=== PATIENT | female | born 1950 | race Caucasian/White ===

== ENCOUNTER 2022-04-12 07:39 | Inpatient (IN) | payer MEDICARE ==
[~2022-04-12] VITALS: Ht 172.7 cm; Wt 89.7 kg
[2022-04-12] MEDS ORDERED: normal saline 1000ML IV soln IVB ONE (09:25)
--- NOTE | 2022-04-12 09:30 | NUR ---
I have reviewed and agree with all interventions, assessments performed and documented by INGE Landa.
[2022-04-12 09:44] LABS: CLARITY,URINE CLOUDY (Clear); COLOR,URINE YELLOW (Yellow); GLUCOSE, URINE NEGATIVE (Neg); KETONES,URINE NEGATIVE (Neg); LEUKOCYTE ESTERASE ,URINE NEGATIVE (Neg); NITRITES, URINE NEGATIVE (Neg); OCCULT BLOOD,URINE NEGATIVE (Neg); PH,URINE 5.5 (4.8-8.0); PROTEIN,URINE NEGATIVE (Neg); UROBILINOGEN,URINE 0.2 E.U/dL (0.2-1.0)
[2022-04-12 09:44] LABS: BASOPHILS # (AUTO) 0.1 X10'3 (0-0.2); BASOPHILS % (AUTO) 1.3 % (0-1); EOSINOPHILS # (AUTO) 0.2 X10'3 (0-0.9); HEMATOCRIT 41.9 % (35.0-45.0); HEMOGLOBIN 13.6 g/dl (12.0-16.0); LYMPHOCYTES # (AUTO) 1.6 X10'3 (1.1-4.8); LYMPHOCYTES % (AUTO) 19.9 % (21-51); MEAN CORPUSCULAR HEMOGLOBIN 28.9 PG (27.0-31.0); MEAN CORPUSCULAR HGB CONC 32.4 g/dL (33.0-36.5); MEAN CORPUSCULAR VOLUME 89.3 FL (78-98); MEAN PLATELET VOLUME 7.6 FL (7.4-10.4); MONOCYTES # (AUTO) 0.6 X10'3 (0-0.9); MONOCYTES % (AUTO) 7.7 % (2-12); NEUTROPHILS # (AUTO) 5.5 X10'3 (1.8-7.7); NEUTROPHILS % (AUTO) 69.1 % (42-75); PLATELET COUNT 245 X10'3 (140-440); RED BLOOD COUNT 4.69 X10'6 (4.20-5.60); RED CELL DISTRIBUTION WIDTH 14.2 % (11.5-14.5)
[2022-04-12 09:49] LABS: UA COLLECTION TYPE VOIDED
[2022-04-12 09:50] LABS: MUCUS STRANDS MODERATE /LPF (Neg); SQUAMOUS EPITHELIAL CELL,UR MANY /LPF (FEW)
[2022-04-12 09:51] LABS: BACTERIA,URINE FEW /HPF (Neg); CAL OXALATE CRYSTALS 1+ /HPF (NEGATIVE); RBC,URINE 0-2 /HPF (0-2); WBC,URINE 0-4 /HPF (0-4)
[2022-04-12 10:07] LABS: ALANINE AMINOTRANSFERASE 30 U/L (12-78); ALBUMIN/GLOBULIN RATIO 1.1 (1.1-1.5); ALKALINE PHOSPHATASE 132 IU/L (46-116); ANION GAP 8 (8-16); ASPARTATE AMINO TRANSFERASE 25 U/L (10-37); BILIRUBIN,TOTAL 0.3 MG/DL (0.1-1.0); BLOOD UREA NITROGEN 21 MG/DL (7-18); BUN/CREATININE RATIO 20.2 (6.6-38.0); CALCIUM 8.8 MG/DL (8.5-10.1); CHLORIDE 102 MMOL/L (99-107); CREATININE 1.04 MG/DL (0.40-0.90); GLUCOSE 171 MG/DL (70-104); POTASSIUM 3.3 MMOL/L (3.5-5.1); SODIUM 139 MMOL/L (135-145); TOTAL CARBON DIOXIDE 28.8 MMOL/L (24-32); TOTAL PROTEIN 7.5 G/DL (6.4-8.2); eGFR 52 ML/MIN
[2022-04-12] MEDS ORDERED: aspirin 81mg tab.chew PO ONE (10:40)
[2022-04-12 14:41] LABS: D-DIMER 0.35 MG/L FEU (0-0.50)
--- NOTE | 2022-04-12 14:49 | NUR ---
JOSE Santana at the bedside. He is aware of pt's vital signs.
[2022-04-12] MEDS ORDERED: FLUT15.815 NS (15:05)
[2022-04-12] MEDS ORDERED: VITA400T10 PO (15:05)
[2022-04-12] MEDS ORDERED: MULT-1249 PO (15:05)
[2022-04-12] MEDS ORDERED: AMIT10TA6 PO (15:05)
[2022-04-12] MEDS ORDERED: CHOL10006 PO (15:05)
[2022-04-12] MEDS ORDERED: OMEP20CA16 PO (15:05)
[2022-04-12] MEDS ORDERED: morphine 2 MG/ML inj. syringe IV PRN ×2 (16:15)
[2022-04-12] MEDS ORDERED: HYDROcodone/acetaminophen 5mg/325mg tablet PO PRN (16:15)
[2022-04-12] MEDS ORDERED: mag hydrox/Alum hydrox/simeth 30ml oral suspension PO PRN (16:15)
[2022-04-12] MEDS ORDERED: acetaminophen 325mg tablet PO PRN (16:15)
[2022-04-12] MEDS ORDERED: magnesium hydroxide 30ml (MOM) UD suspension PO PRN (16:15)
[2022-04-12] MEDS ORDERED: ondansetron/PF 4mg/2ml inj IV PRN (16:15)
[2022-04-12] MEDS: metoprolol succinate 25mg (24-HOUR) SR. Tablet PO SCH (16:47)
[2022-04-12] MEDS: acetaminophen 325mg tablet PO PRN (17:42)
[2022-04-12] MEDS ORDERED: docusate sod 100mg capsule PO SCH (20:00)
[2022-04-12] MEDS ORDERED: amitriptyline 10mg tablet PO SCH (21:00)
[2022-04-12] MEDS ORDERED: pantoprazole 40mg Tablet.DR PO ONE (22:10)
--- NOTE | 2022-04-13 00:06 | NUR ---
REPORT CALLED TO FLOOR NURSE. PT TX TO [phone] [id number]
[2022-04-13 00:20] VITALS: BP 175/88
[2022-04-13] MEDS: acetaminophen 325mg tablet PO PRN (01:39)
[2022-04-13 02:30] VITALS: BP 162/91
--- NOTE | 2022-04-13 06:10 | NUR ---
Patient in room PCU 3023. I have received report from Oz ACOSTA and had the opportunity to ask questions and assume patient care.
--- NOTE | 2022-04-13 06:13 | NUR ---
Problems reprioritized. Patient report given, questions answered & plan of care reviewed with Katty ALCAZAR. Addendum: 04/13/22 at 0615 by Oz Landaverde RN Problems reprioritized. Patient report given, questions answered & plan of care reviewed with Mikki ACOSTA
[2022-04-13 07:24] LABS: BASOPHILS % (AUTO) 0.5 % (0-1); EOSINOPHILS # (AUTO) 0.2 X10'3 (0-0.9); EOSINOPHILS % (AUTO) 2.6 % (0-6); HEMATOCRIT 39.2 % (35.0-45.0); HEMOGLOBIN 13.1 g/dl (12.0-16.0); LYMPHOCYTES # (AUTO) 1.9 X10'3 (1.1-4.8); LYMPHOCYTES % (AUTO) 27.8 % (21-51); MEAN CORPUSCULAR HEMOGLOBIN 29.5 PG (27.0-31.0); MEAN CORPUSCULAR HGB CONC 33.4 g/dL (33.0-36.5); MEAN CORPUSCULAR VOLUME 88.4 FL (78-98); MEAN PLATELET VOLUME 7.6 FL (7.4-10.4); MONOCYTES # (AUTO) 0.7 X10'3 (0-0.9); MONOCYTES % (AUTO) 10.1 % (2-12); PLATELET COUNT 221 X10'3 (140-440); RED BLOOD COUNT 4.43 X10'6 (4.20-5.60); RED CELL DISTRIBUTION WIDTH 13.9 % (11.5-14.5); WHITE BLOOD COUNT 6.8 X10'3 (4.5-11.0)
[2022-04-13 07:28] LABS: ALBUMIN 3.7 G/DL (3.4-5.0); ANION GAP 6 (8-16); BLOOD UREA NITROGEN 15 MG/DL (7-18); CALCIUM 9.1 MG/DL (8.5-10.1); CHLORIDE 107 MMOL/L (99-107); CREATININE 0.88 MG/DL (0.40-0.90); GLUCOSE 101 MG/DL (70-104); POTASSIUM 3.8 MMOL/L (3.5-5.1); SODIUM 141 MMOL/L (135-145); TOTAL CARBON DIOXIDE 27.9 MMOL/L (24-32); eGFR 64 ML/MIN
[2022-04-13] MEDS ORDERED: fluticasone nasal spray 16GM bottle NS SCH (08:00)
[2022-04-13] MEDS ORDERED: enoxaparin 40mg/0.4ml syringe SUBCUT SCH (08:00)
[2022-04-13] MEDS ORDERED: cholecalciferol (vitamin D3) 1,000 unit (25mcg) tablet PO SCH (08:00)
[2022-04-13] MEDS ORDERED: multivitamins, therapeutics tablet PO SCH (08:00)
[2022-04-13] MEDS ORDERED: pantoprazole 40mg Tablet.DR PO SCH (08:00)
[2022-04-13] MEDS ORDERED: LORA-269 PO ×2 (08:26)
[2022-04-13] MEDS ORDERED: LISI10TA27 PO ×2 (08:26)
[2022-04-13] MEDS ORDERED: AMIT10TA6 PO ×2 (08:26)
[2022-04-13] MEDS: metoprolol succinate 25mg (24-HOUR) SR. Tablet PO SCH (08:34)
--- NOTE | 2022-04-13 11:10 | NUR ---
Pt stable for discharge per Dr. Washburn. All discharge instructions reviewed with patient and all questions answered. Pt verbalized understanding. New medications e-scripted to [facility]. PIV discontinued, cannula intact. Tele discontinued. All belongings collected and sent with patient. Wheeled to lobby via nursing staff and picked up by friend.
[2022-04-17] MEDS ORDERED: METO50TA16 PO (13:50)
[2022-04-17] MEDS ORDERED: LORA-269 PO (13:50)
[2022-04-17] MEDS ORDERED: AMIT10TA6 PO (13:50)
[2022-04-17] MEDS ORDERED: CITA20TA16 PO (13:54)
[2022-04-17] MEDS ORDERED: FLUT15.87 (13:54)
[2022-04-17] MEDS ORDERED: LISI10TA27 PO (13:55)
[2022-04-19] MEDS ORDERED: ATOR20TA66 PO (12:27)
[2022-04-19] MEDS ORDERED: ASPI81TA53 PO (12:27)
[2022-04-19] MEDS ORDERED: NOR5T PO (12:27)
[2022-04-19] MEDS ORDERED: HYDR12.55 PO (12:28)
== END 2022-04-13 10:45 | disposition home or self-care (01) | DRG 310 ==
LOC: ER 07:39 → ED HOLD 16:15 → PCU 3S 04-13 00:15
PROVIDERS: ADMIT Internal Medicine; ATTEND Internal Medicine
DX: R00.0 Tachycardia, unspecified (principal); R03.0 Elevated blood-pressure reading, without diagnosis of hypertension; F32.A Depression, unspecified; F41.9 Anxiety disorder, unspecified; G43.909 Migraine, unspecified, not intractable, without status migrainosus; G47.00 Insomnia, unspecified; K21.9 Gastro-esophageal reflux disease without esophagitis; R77.8 Other specified abnormalities of plasma proteins; Z79.899 Other long term (current) drug therapy; Z87.891 Personal history of nicotine dependence; Z88.0 Allergy status to penicillin; Z90.711 Acquired absence of uterus with remaining cervical stump; Z88.2 Allergy status to sulfonamides; Z88.1 Allergy status to other antibiotic agents
CPT/HCPCS: 36415; 80048; 80053; 81001; 83880; 84443; 84484; 85025; 85379; 93005; 99285; G0378; J1650; J7030